=== PATIENT | male | born 1955 | race Caucasian/White ===

== ENCOUNTER 2017-11-22 11:28 | Observation (INO) | payer OTHER ==
[2017-11-22 11:48] VITALS: BMI 26.4
--- NOTE | 2017-11-22 11:58 | PDOC ---
Attending Attestation - Resident Resident Name: Isaac Dumont - HPI HPI: 11/22/17 13:28 Pt presents to the ED complaining of dull, substernal, pressure like chest pain that started at 4 am and was relieved by asprin in [place]'s office. Also complains of lightheadness but denies shortness of breath. Pain was non radiating and was severe. Denies prior history of similar pain. - Physicial Exam PE: 11/22/17 13:32 agree with resident exam. Patient is alert and is in no acute distress. Lungs are clear. Heart has regular rate and rhythm with no murmurs. - Medical Decision Making 11/22/17 13:32 Pt presents to the ED complaining of chest pain. EKG shows no acute changes. Patient's symptoms are concerning for ACS. Will check cardiac enzymes and serial EKG, admit to medicine for r/o ACS.
[2017-11-22 12:34] LABS: BASO % 0.6 % (0-2.0); EOS % 1.1 % (0-4.5); HEMATOCRIT 45.7 % (35.4-49); HEMOGLOBIN 16.1 GM/dL (11.7-16.9); LYMPH % 29.4 % (8-40); MCH 33.4 pg (25.7-33.7); MCHC 35.1 g/dl (32.0-35.9); MEAN CELL VOLUME 95.3 fl (80-96); MEAN PLT VOLUME 7.4 fl (7.5-11.1); MONO % 13.8 % (3.8-10.2); NEUT % 55.1 % (42.8-82.8); PLATELET COUNT 183 K/MM3 (134-434); RDW 12.9 % (11.9-15.9); WHITE BLOOD COUNT 6.5 K/mm3 (4.0-10.0)
[2017-11-22 12:42] LABS: INR 0.92 (0.82-1.09); PROTHROMBIN TIME (PATIENT) 10.4 SEC (9.7-13.0)
--- NOTE | 2017-11-22 12:52 | EKG ---
Test Reason : Blood Pressure : / mmHG Vent. Rate : 061 BPM Atrial Rate : 061 BPM P-R Int : 150 ms QRS Dur : 078 ms QT Int : 420 ms P-R-T Axes : 011 -17 -17 degrees QTc Int : 422 ms POOR DATA QUALITY, INTERPRETATION MAY BE ADVERSELY AFFECTED NORMAL SINUS RHYTHM WITH SINUS ARRHYTHMIA ABNORMAL ECG NO PREVIOUS ECGS AVAILABLE Confirmed by Eber German ([id number]) on 11/22/2017 12:51:58 PM Referred By: Confirmed By:Eber German
--- NOTE | 2017-11-22 13:00 | PDOC ---
History of Present Illness - General Chief Complaint: Chest Pain Stated Complaint: CHEST PAIN Time Seen by Provider: 11/22/17 11:50 - History of Present Illness Initial Comments: 62 year old male without any medical history presenting with palpitations and chest pain over the past day. He had sudden onset palpitations yesterday afternoon that made him sweat and feel nauseous. the palpitations improved but he had a lingering chest discomfort that he saw Dr. Poe for after he measured his pressure at his workplace to 170[address] systolic[address] Dr. Poe set him up for a cardiology appointment with Dean the next day. He had onset of diarrhea yesterday evening and noticed a chest pressure again with nausea, vomiting, and lightheadedness at around 2 Am this morning that has been consistent since. He saw Mauricio this morning and he gave him two aspirin and sent him to the ED. Patient currently complaining of slight chest discomfort that has not remitted. 11/22/17 12:55 Past History - Past Medical History Allergies/Adverse Reactions: Allergies Allergy/AdvReac Type Severity Reaction Status Date / Time No Known Allergies Allergy Verified 11/22/17 11:44 COPD: No Other medical history: DENIES. - Suicide/Smoking/Psychosocial Hx Smoking History: Former smoker Have you smoked in the past 12 months: No Information on smoking cessation initiated: No Review of Systems - Review of Systems Constitutional: No: Chills, Diaphoresis, Fever, Weakness HEENTM: No: Blurred Vision, Double Vision Respiratory: No: Cough, Orthopnea, Shortness of Breath, Wheezing Cardiac (ROS): Yes: Chest Pain, Palpitations. No: Syncope ABD/GI: Yes: Diarrhea. No: Constipated, Nausea, Vomiting : No: Burning, Dysuria, Discharge Musculoskeletal: No: Back Pain, Joint Pain Integumentary: No: Bruising, Erythema, Flushing, Lesions Neurological: No: Headache, Numbness, Paresthesia, Tremors Psychiatric: No: Anxiety, Depression Hematologic/Lymphatic: No: Anemia, Blood Clots, Easy Bleeding *Physical Exam - Vital Signs Last Vital Signs Temp Pulse Resp BP Pulse Ox 98.6 F 58 L 22 157/95 100 11/22/17 11:45 11/22/17 11:45 11/22/17 11:45 11/22/17 11:45 11/22/17 11:45 - Physical Exam General Appearance: Yes: Nourished, Appropriately Dressed. No: Apparent Distress HEENT: positive: EOMI, LUIS F, Normal ENT Inspection, Normal Voice Neck: positive: Trachea midline, Normal Thyroid, Supple. negative: Tender, Rigid Respiratory/Chest: positive: Lungs Clear, Normal Breath Sounds. negative: Chest Tender, Respiratory Distress, Accessory Muscle Use Cardiovascular: positive: Regular Rhythm, Regular Rate Gastrointestinal/Abdominal: positive: Normal Bowel Sounds, Flat, Soft. negative : Tender Musculoskeletal: positive: Normal Inspection. negative: CVA Tenderness Extremity: positive: Normal Capillary Refill, Normal Inspection, Normal Range of Motion. negative: Tender Integumentary: positive: Normal Color, Dry, Warm Neurologic: positive: Fully Oriented, Alert, Normal Mood/Affect, Normal Response , Motor Strength 11/26 ED Treatment Course - LABORATORY CBC & Chemistry Diagram: 11/22/17 12:15 11/22/17 14:08 - ADDITIONAL ORDERS Additional order review: 11/22/17 12:15 RBC 4.80 MCV 95.3 MCHC 35.1 RDW 12.9 MPV 7.4 L Neutrophils % 55.1 Lymphocytes % 29.4 Monocytes % 13.8 H Eosinophils % 1.1 Basophils % 0.6 - RADIOLOGY Radiology Studies Ordered: Category Date Time Status CHEST PA & LAT [RAD] Stat Radiology 11/22/17 11:51 Ordered Medical Decision Making - Medical Decision Making 62 year old male with low cardiac risk factors but highly suspicious story for chest pain. Labs, CXR, and troponins negative/ WNL with exception of elevated T- bili (d-bili pending). Given the suspicion of the story, will admit for tele obs under Dr. [place]. 11/22/17 16:29 *DC/Admit/Observation/Transfer Diagnosis at time of Disposition: Chest pain Qualifiers: Chest pain type: unspecified Qualified Code(s): R07.9 - Chest pain, unspecified - Discharge Dispostion Condition at time of disposition: Stable Admit: Yes - Referrals Referrals: Christopher Poe MD [Primary Care Provider] - - Patient Instructions - Post Discharge Activity
[2017-11-22 13:55] LABS: URINE APPEARANCE CLEAR; URINE BILIRUBIN NEGATIVE (<2.0 mg/dL); URINE BLOOD NEGATIVE (NEGATIVE); URINE COLOR LTYELLOW; URINE GLUCOSE (UA) NEGATIVE (NEGATIVE); URINE KETONE TRACE (NEGATIVE); URINE LEUK ESTERASE NEGATIVE (NEGATIVE); URINE NITRITE NEGATIVE (NEGATIVE); URINE PROTEIN NEGATIVE (NEGATIVE); URINE UROBILINOGEN NEGATIVE mg/dL (0.2-1.0)
[2017-11-22 14:43] LABS: ALBUMIN 3.2 g/dl (3.4-5.0); ANION GAP 9 (8-16); BILIRUBIN,TOTAL 1.7 mg/dL (0.2-1.0); BLOOD UREA NITROGEN 10 mg/dL (7-18); CHLORIDE 105 mmol/L (98-107); CO2 23 mmol/L (21-32); CREATININE 0.8 mg/dL (0.7-1.3); GLUCOSE,RANDOM 96 mg/dL (74-106); POTASSIUM 3.4 mmol/L (3.5-5.1); SGOT/AST 95 U/L (15-37); SGPT/ALT 68 U/L (12-78); SODIUM 137 mmol/L (136-145); TOT PROT 7.3 g/dl (6.4-8.2)
[2017-11-22 14:45] LABS: ALK PHOS 56 U/L (45-117)
--- NOTE | 2017-11-22 20:11 | CON.CARD ---
Cardiology Consult (text) - Consultation Consultation Note: Briefly, 62M sent to ER from my office for 1 day of palpitations, exertional dizziness and chest pain/tightness at rest. Cardiac enzymes and serial ECGs are negative/unchanged. Risk factors include HTN, newly diagnosed, and patient reported history of hyperlipidemia. Physical exam was normal except for mild HTN. CXR is normal. Remainder of admission labs are unremarkable. IMP: Multiple cardiac symptoms: palpitations, exertional dizziness and chest pain syndrome: broad differential including arrhythmia, ischemia, pericardial disease , PHTN and valvular disease. Required urgent inpatient evaluation. [place] has been excluded. REC: 1. Telemetry 2. Echo for EF assessment, r/o pericardial dz and evaluate for PHTN 3. As ECG is stable and serial enzymes negative, will plan for stress MIBI in AM for initial non-invasive risk stratification with further reccs to follow. 4. ASA, beta rosa. 5. AM fasting lipids. Patient was seen in full office consultation today and referred to ER for urgent cardiac labs and diagnostic testing.
[2017-11-22] MEDS: METOPROLOL TARTRATE 25 MG TABLET (FP) PO SCH (22:02)
--- NOTE | 2017-11-22 23:25 | HP ---
Admitting History and Physical - Admission History of Present Illness: 62 y/o m w/ h/o newly diagnosed HTN and HLD was sent to ER (from cardiology outpt office) due to exertional dizziness and chest pain/tightness at rest. Associated with diarrhea/nausea the previous day (before onset of symptoms) Cardiac enzymes and serial ECGs are negative. Pt denies fever, chills. No recent travel or sick contacts. - Smoking History Smoking history: Former smoker Have you smoked in the past 12 months: No - Alcohol/Substance Use Hx Alcohol Use: No Home Medications - Allergies Allergies/Adverse Reactions: Allergies Allergy/AdvReac Type Severity Reaction Status Date / Time No Known Allergies Allergy Verified 11/22/17 11:44 - Home Medications Home Medications: Ambulatory Orders Aspirin 81 mg PO DAILY 11/22/17 Physical Examination Vital Signs: Vital Signs Temperature 99.6 F 11/22/17 18:45 Pulse Rate 73 11/22/17 18:45 Respiratory Rate 15 11/22/17 19:00 Blood Pressure 156/96 11/22/17 18:45 O2 Sat by Pulse Oximetry (%) 100 11/22/17 19:00 Cardiovascular: Yes: Regular Rate and Rhythm Respiratory: Yes: Regular, CTA Bilaterally Gastrointestinal: Yes: Normal Bowel Sounds Labs: CBC, BMP 11/22/17 12:15 11/22/17 14:08 Problem List - Problems (1) Chest pain Code(s): R07.9 - CHEST PAIN, UNSPECIFIED Qualifiers: Chest pain type: unspecified Qualified Code(s): R07.9 - Chest pain, unspecified Assessment/Plan Chest Pain [place] has been excluded. -Given broad symptoms--monitor changes -further inpt evaluation s per cardiology. -pain control
[2017-11-22] MEDS: ALPRAZolam 0.25 MG TABLET PO PRN (23:45)
[2017-11-23 06:00] LABS: BASO % 0.3 % (0-2.0); HEMATOCRIT 40.9 % (35.4-49); HEMOGLOBIN 14.3 GM/dL (11.7-16.9); MCH 33.8 pg (25.7-33.7); MEAN CELL VOLUME 96.7 fl (80-96); MEAN PLT VOLUME 7.6 fl (7.5-11.1); MONO % 16.6 % (3.8-10.2); NEUT % 43.1 % (42.8-82.8); PLATELET COUNT 161 K/MM3 (134-434); RBC 4.23 M/mm3 (4.00-5.60); WHITE BLOOD COUNT 5.4 K/mm3 (4.0-10.0)
[2017-11-23 07:37] LABS: ALBUMIN 3.1 g/dl (3.4-5.0); ANION GAP 7 (8-16); BLOOD UREA NITROGEN 9 mg/dL (7-18); CALCIUM 8.2 mg/dL (8.5-10.1); CHLORIDE 106 mmol/L (98-107); CHOLESTEROL 170 mg/dL (50-200); CO2 27 mmol/L (21-32); CREATININE 0.9 mg/dL (0.7-1.3); GLUCOSE,RANDOM 101 mg/dL (74-106); POTASSIUM 3.8 mmol/L (3.5-5.1); SGOT/AST 88 U/L (15-37); SGPT/ALT 65 U/L (12-78); SODIUM 140 mmol/L (136-145); TRIGLYCERIDES 417 mg/dL (35-160)
[2017-11-23 07:46] LABS: ALK PHOS 55 U/L (45-117); BILIRUBIN,TOTAL 1.6 mg/dL (0.2-1.0); HDL CHOLESTEROL 33 mg/dL (40-60); TOT PROT 7.3 g/dl (6.4-8.2)
--- NOTE | 2017-11-23 08:02 | PN ---
Progress Note, Physician Chief Complaint: comfortable No chest pain History of Present Illness: TELE: NSR - Current Medication List Current Medications: Active Medications Alprazolam (Xanax -) 0.25 mg PO BID PRN PRN Reason: ANXIETY Last Admin: 11/22/17 23:45 Dose: 0.25 mg Aspirin (Asa -) 162 mg PO DAILY [facility] Metoprolol Tartrate (Lopressor -) 25 mg PO BID [facility] Last Admin: 11/22/17 22:02 Dose: 25 mg - Objective Vital Signs: Vital Signs Temperature 98.4 F 11/23/17 06:00 Pulse Rate 58 L 11/23/17 06:00 Respiratory Rate 15 11/23/17 06:48 Blood Pressure 140/83 11/23/17 06:00 O2 Sat by Pulse Oximetry (%) 100 11/23/17 06:48 Constitutional: Yes: Calm Cardiovascular: Yes: Regular Rate and Rhythm Respiratory: Yes: CTA Bilaterally Gastrointestinal: Yes: Soft Edema: No Neurological: Yes: Alert, Oriented ...Motor Strength: WNL Labs: CBC, BMP 11/23/17 05:40 INR, PTT INR 0.92 (0.82-1.09) 11/22/17 12:15 Laboratory Tests 11/22/17 11/22/17 11/22/17 13:51 14:08 17:52 WBC Hgb Plt Count Troponin I < 0.02 < 0.02 < 0.02 11/23/17 05:40 WBC 5.4 Hgb 14.3 D Plt Count 161 Troponin I - ....Imaging Chest X-ray: Report Reviewed, Image Reviewed EKG: Image Reviewed Assessment/Plan IMP: Multiple cardiac symptoms: palpitations, exertional dizziness and chest pain syndrome: broad differential including arrhythmia, ischemia, pericardial disease , PHTN and valvular disease. Required urgent inpatient evaluation. [place] has been excluded. REC: 1. Telemetry 2. Echo for EF assessment, r/o pericardial dz and evaluate for PHTN 3. As ECG is stable and serial enzymes negative, will plan for stress MIBI today for initial non-invasive risk stratification with further reccs to follow. 4. ASA, beta rosa to be held this AM for stress test 5. AM fasting lipids pending
[2017-11-23] MEDS ORDERED: ASPIRIN 81 MG CHEWABLE TABLETS ONE (08:45)
[2017-11-23] MEDS ORDERED: ASPIRIN 81 MG CHEWABLE TABLETS PO SCH (10:00)
[2017-11-23] MEDS: ASPIRIN 81 MG CHEWABLE TABLETS PO SCH (10:00)
[2017-11-23] MEDS: METOPROLOL TARTRATE 25 MG TABLET (FP) PO SCH ×2 (10:00→21:52)
--- NOTE | 2017-11-23 10:31 | EKG ---
Test Reason : Blood Pressure : / mmHG Vent. Rate : 063 BPM Atrial Rate : 063 BPM P-R Int : 148 ms QRS Dur : 084 ms QT Int : 416 ms P-R-T Axes : 009 -18 -01 degrees QTc Int : 425 ms POOR DATA QUALITY, INTERPRETATION MAY BE ADVERSELY AFFECTED NORMAL SINUS RHYTHM INFERIOR INFARCT (CITED ON OR BEFORE 22-NOV-2017) ABNORMAL ECG WHEN COMPARED WITH ECG OF 22-NOV-2017 11:33, NO SIGNIFICANT CHANGE WAS FOUND Confirmed by NIKOLE LANDEROS, JOE ([id number]) on 11/23/2017 10:30:54 AM Referred By: Confirmed By:JOE AGUSTIN MD
--- NOTE | 2017-11-23 21:13 | PN ---
Progress Note, Physician History of Present Illness: no new complaints - Current Medication List Current Medications: Active Medications Alprazolam (Xanax -) 0.25 mg PO BID PRN PRN Reason: ANXIETY Last Admin: 11/22/17 23:45 Dose: 0.25 mg Aspirin (Asa -) 162 mg PO DAILY [facility] Last Admin: 11/23/17 10:00 Dose: 162 mg Metoprolol Tartrate (Lopressor -) 25 mg PO BID [facility] Last Admin: 11/23/17 10:00 Dose: Not Given - Objective Vital Signs: Vital Signs Temperature 98.8 F 11/23/17 18:56 Pulse Rate 64 11/23/17 17:00 Respiratory Rate 24 11/23/17 20:00 Blood Pressure 126/79 11/23/17 17:00 O2 Sat by Pulse Oximetry (%) 100 11/23/17 20:00 Constitutional: Yes: No Distress Cardiovascular: Yes: Regular Rate and Rhythm Respiratory: Yes: Regular, CTA Bilaterally Gastrointestinal: Yes: Normal Bowel Sounds Labs: CBC, BMP 11/23/17 05:40 11/23/17 05:40 INR, PTT INR 0.92 (0.82-1.09) 11/22/17 12:15 Problem List - Problems (1) Chest pain Code(s): R07.9 - CHEST PAIN, UNSPECIFIED Qualifiers: Chest pain type: unspecified Qualified Code(s): R07.9 - Chest pain, unspecified Assessment/Plan Chest Pain -Given broad symptoms--monitor changes -further inpt evaluation as per cardiology.
[2017-11-23] MEDS: ALPRAZolam 0.25 MG TABLET PO PRN (21:52)
--- NOTE | 2017-11-24 08:20 | PN ---
Progress Note, Physician Chief Complaint: + stress test History of Present Illness: TELE: NSR, sinus tu while asleep - Current Medication List Current Medications: Active Medications Alprazolam (Xanax -) 0.25 mg PO BID PRN PRN Reason: ANXIETY Last Admin: 11/23/17 21:52 Dose: 0.25 mg Aspirin (Asa -) 162 mg PO DAILY [facility] Last Admin: 11/23/17 10:00 Dose: 162 mg Metoprolol Tartrate (Lopressor -) 25 mg PO BID [facility] Last Admin: 11/23/17 21:52 Dose: 25 mg - Objective Vital Signs: Vital Signs Temperature 98.2 F 11/24/17 02:00 Pulse Rate 47 L 11/24/17 05:42 Respiratory Rate 22 11/24/17 05:42 Blood Pressure 124/77 11/24/17 05:42 O2 Sat by Pulse Oximetry (%) 100 11/24/17 02:46 Constitutional: Yes: No Distress, Calm Cardiovascular: Yes: Regular Rate and Rhythm Respiratory: Yes: CTA Bilaterally Gastrointestinal: Yes: Soft Edema: No Neurological: Yes: Alert, Oriented Labs: CBC, BMP 11/23/17 05:40 11/23/17 05:40 INR, PTT INR 0.92 (0.82-1.09) 11/22/17 12:15 - ....Imaging EKG: Image Reviewed (NSR) Assessment/Plan IMP: New onset angina + stress test, moderate ischemia REC: Plan for Tx to [facility] for cath. Several RF, new onset angina, moderate area of ischemia. Risks/benefits reviewed in detail. Patient has agreed to cath
[2017-11-24] MEDS: ASPIRIN 81 MG CHEWABLE TABLETS PO SCH (09:17)
[2017-11-24 11:14] VITALS: BP 137/73; PULSE 63; TEMP 99.1
--- NOTE | 2017-11-24 15:30 | DS ---
Physical Examination Vital Signs: Vital Signs Temperature 99.1 F 11/24/17 10:00 Pulse Rate 63 11/24/17 10:00 Respiratory Rate 22 11/24/17 10:00 Blood Pressure 137/73 11/24/17 10:00 O2 Sat by Pulse Oximetry (%) 100 11/24/17 02:46 Labs: CBC, BMP 11/23/17 05:40 11/23/17 05:40 Discharge Summary Reason For Visit: CHEST PAIN Chest pain Hospital Course: 62 y/o m w/ h/o newly diagnosed HTN and HLD was sent to ER (from cardiology outpt office) due to exertional dizziness and chest pain/tightness at rest. Associated with diarrhea/nausea the previous day (before onset of symptoms) cardiac enzymes and serial ECGs were negative. Pt had (+) stress test (w/ moderate ischemia and was transferred to [facility] facility. Condition: Stable - Instructions Referrals: Christopher Poe MD [Primary Care Provider] - Disposition: TRANSFER ACUTE CARE/OTHER HOSP - Home Medications Comprehensive Discharge Medication List: Ambulatory Orders Aspirin 81 mg PO DAILY 11/22/17
== END 2017-11-24 10:45 | disposition short-term general hospital (02) ==
LOC: JER 11:28 → JERBED 16:34 → J2W 18:43
PROVIDERS: ADMIT Internal Medicine; ATTEND Internal Medicine
DX: R07.9 Chest pain, unspecified (principal); I20.9 Angina pectoris, unspecified
CPT/HCPCS: 36415; 71046-TC-FY; 78452-TC; 80048; 80053; 80061; 81003; 82248; 82550; 83721; 83735; 84443; 84484; 85025; 85610; 93005; 93010; 93017; 93306-TC; 99284-25; A9502; G0378

== ENCOUNTER 2018-09-29 12:18 | Inpatient (IN) | payer OTHER ==
[2018-09-29 12:29] VITALS: BMI 26.4
--- NOTE | 2018-09-29 14:43 | PDOC ---
History of Present Illness - General Chief Complaint: Chest Pain Stated Complaint: SENT FROM [facility] Time Seen by Provider: 09/29/18 14:12 History Source: Patient Exam Limitations: No Limitations - History of Present Illness Initial Comments: 09/29/18 14:37 Patient is a 63M with history of CABG and HLD here today complaining of two days of chest pain described as a discomfort. Patient states that the pain started after a dental implant procedure that lasted over one hour. Denies leg swelling, recent travel. Denies radiation of pain. Endorses feeling weaker than normal the past two days. Denies history of blood clots. Denies fevers, chills, shortness of breath, nausea, vomiting, and cough. Past History - Past Medical History Allergies/Adverse Reactions: Allergies Allergy/AdvReac Type Severity Reaction Status Date / Time No Known Allergies Allergy Verified 09/29/18 12:26 Home Medications: Ambulatory Orders Aspirin 81 mg PO DAILY 11/22/17 Atorvastatin Calcium [Lipitor] 10 mg PO HS 09/29/18 COPD: No - Immunization History Immunization Up to Date: Yes - Suicide/Smoking/Psychosocial Hx Smoking History: Never smoked Have you smoked in the past 12 months: No Hx Alcohol Use: No Drug/Substance Use Hx: No Review of Systems - Review of Systems Able to Perform ROS?: Yes Comments:: 09/29/18 14:43 GENERAL/CONSTITUTIONAL: No fever or chills. No weakness. HEAD, EYES, EARS, NOSE AND THROAT: No change in vision. No sore throat. CARDIOVASCULAR: +chest pain No shortness of breath RESPIRATORY: No cough, wheezing, or hemoptysis. GASTROINTESTINAL: No nausea, vomiting, diarrhea or constipation. GENITOURINARY: No dysuria, frequency, or change in urination. MUSCULOSKELETAL: No joint or muscle swelling or pain. No neck or back pain. SKIN: No rash NEUROLOGIC: No headache, vertigo, loss of consciousness, or change in strength/ sensation. ENDOCRINE: No increased thirst. No abnormal weight change HEMATOLOGIC/LYMPHATIC: No anemia, easy bleeding, or history of blood clots. ALLERGIC/IMMUNOLOGIC: No hives or skin allergy. *Physical Exam - Vital Signs Last Vital Signs Temp Pulse Resp BP Pulse Ox 98.5 F 79 16 143/71 99 09/29/18 12:26 09/29/18 12:26 09/29/18 12:26 09/29/18 12:26 09/29/18 12:26 - Physical Exam Comments: 09/29/18 14:44 GENERAL: Awake, alert, and fully oriented, in no acute distress HEAD: No signs of trauma, normocephalic, atraumatic EYES: PERRLA, EOMI, sclera anicteric, conjunctiva clear ENT: Auricles normal inspection, hearing grossly normal, nares patent, oropharynx clear without exudates. Moist mucosa NECK: Normal ROM, supple, no lymphadenopathy, JVD, or masses LUNGS: No distress, speaks full sentences, clear to auscultation bilaterally HEART: Regular rate and rhythm, normal S1 and S2, no murmurs, rubs or gallops, peripheral pulses normal and equal bilaterally. ABDOMEN: Soft, nontender, normoactive bowel sounds. No guarding, no rebound. No masses EXTREMITIES: Normal inspection, Normal range of motion, no edema. No clubbing or cyanosis. NEUROLOGICAL: Cranial nerves II through XII grossly intact. Normal speech, normal gait, no focal sensorimotor deficits SKIN: Warm, Dry, normal turgor, no rashes or lesions noted. Moderate Sedation - Procedure Monitoring Vital Signs: Procedure Monitoring Vital Signs Temperature 98.5 F 09/29/18 12:26 Pulse Rate 79 09/29/18 12:26 Respiratory Rate 16 09/29/18 12:26 Blood Pressure 143/71 09/29/18 12:26 O2 Sat by Pulse Oximetry (%) 99 09/29/18 12:26 ED Treatment Course - LABORATORY CBC & Chemistry Diagram: 09/29/18 15:00 09/29/18 15:00 - RADIOLOGY Radiology Studies Ordered: Category Date Time Status CHEST PA & LAT [RAD] Stat Radiology 09/29/18 14:23 Ordered Medical Decision Making - Medical Decision Making 09/29/18 14:44 Patient is 63M with history of CABG and HLD here today with chest pain. Vitals normal and stable. DDx includes, but is not limited to: acs, arrhythmia, chf, pneumonia, pe. Low risk for PE, but do want to rule out given recent procedure and association with same procedure. Will d-dimer, typical cardiac labs. EKG shows NSR, no st elevations/depressions. Normal axis. Normal intervals. Q waves in III and aVF. No significant t wave abnormalities. 09/30/18 09:35 D-dimer negative. Trop neg. Labs reassuring. Admitted to tele obs. Delay in note completion caused by [employer] downtime. *DC/Admit/Observation/Transfer Diagnosis at time of Disposition: Chest pain - Discharge Dispostion Condition at time of disposition: Stable Decision to Admit order: Yes - Referrals - Patient Instructions - Post Discharge Activity
[2018-09-29 15:24] LABS: BASO % 0.3 % (0-2.0); EOS % 1.9 % (0-4.5); HEMATOCRIT 44.7 % (35.4-49); HEMOGLOBIN 15.6 GM/dL (11.7-16.9); MCH 33.7 pg (25.7-33.7); MEAN CELL VOLUME 96.4 fl (80-96); MEAN PLT VOLUME 7.7 fl (7.5-11.1); MONO % 12.7 % (3.8-10.2); NEUT % 54.1 % (42.8-82.8); PLATELET COUNT 145 K/MM3 (134-434); RBC 4.63 M/mm3 (4.00-5.60); RDW 13.2 % (11.9-15.9); WHITE BLOOD COUNT 4.1 K/mm3 (4.0-10.0)
[2018-09-29 16:07] LABS: INR 0.95 (0.83-1.09); PROTHROMBIN TIME (PATIENT) 11.2 SEC (9.7-13.0)
[2018-09-29 16:25] LABS: ALBUMIN 3.2 g/dl (3.4-5.0); ALK PHOS 88 U/L (45-117); ANION GAP 10 MMOL/L (8-16); BILIRUBIN,TOTAL 2.2 mg/dL (0.2-1); BLOOD UREA NITROGEN 9 mg/dL (7-18); CHLORIDE 101 mmol/L (98-107); CO2 25 mmol/L (21-32); CREATININE 0.9 mg/dL (0.55-1.3); GLUCOSE,RANDOM 107 mg/dL (74-106); MAGNESIUM 2.1 mg/dL (1.8-2.4); POTASSIUM 4.3 mmol/L (3.5-5.1); SGOT/AST 592 U/L (15-37); SGPT/ALT 357 U/L (13-61); SODIUM 136 mmol/L (136-145); TOT PROT 7.8 g/dl (6.4-8.2)
--- NOTE | 2018-09-29 16:42 | PDOC ---
Attending Attestation - Resident Resident Name: J LuissapnaJuan Ramon - ED Attending Attestation I have performed the following: I have examined & evaluated the patient, The case was reviewed & discussed with the resident, I agree w/resident's findings & plan, Exceptions are as noted - HPI HPI: 09/29/18 16:43 The patient is a 63 year old male with a significant past medical history of CABG, and hyperlipidemia who presents to the emergency department with chest pain for 3 days. The patient reports that he has been more tired than usual. He reports that he had dental implants put into his upper jaw 2 days ago which took about 4 hours. The patient denies any shortness of breath, headache, dizziness, numbness, weakness or tingling sensations. He denies any fever, chills, nausea, vomiting, or diarrhea. The patient denies any other complaints. - Physicial Exam PE: 09/29/18 16:47 GENERAL: Awake, alert, and fully oriented, in no acute distress. HEAD: No signs of trauma EYES: PERRLA, EOMI, sclera anicteric, conjunctiva clear ENT: Auricles normal inspection, hearing grossly normal, nares patent, oropharynx clear without exudates. Moist mucosa NECK: Nontender, no stepoffs, Normal ROM, supple, no lymphadenopathy, JVD, or masses LUNGS: Breath sounds equal, clear to auscultation bilaterally. No wheezes, and no crackles HEART: Regular rate and rhythm, normal S1 and S2, no murmurs, rubs or gallops ABDOMEN: Soft, nontender, normoactive bowel sounds. No guarding, no rebound. No masses EXTREMITIES: Normal range of motion, no edema. No clubbing or cyanosis. No cords, erythema, or tenderness NEUROLOGICAL: Cranial nerves II through XII intact. 5/5 strength and sensation in all extremities, Normal speech, normal gait, normal cerebellar function SKIN: Warm, Dry, normal turgor, no rashes or lesions noted. - Medical Decision Making 09/29/18 16:47 63 M with chest pain. Will r/o ACS with EKG and serial trops. Pt with no s/s DVT but given recent immobilization for dental procedure, will obtain ddimer. - Labs, trop, Ddimer - CXR
--- NOTE | 2018-09-30 08:18 | CON.CARD ---
Consult Consult Specialty:: Cardiology for dr. Reilly - History of Present Illness Chief Complaint: cp History of Present Illness: Patient is a 63M with history of CAD and HLD here today complaining of two days of chest pain described as a discomfort. Patient states that the pain started after a dental implant procedure that lasted over one hour. Denies leg swelling , recent travel. Denies radiation of pain. Endorses feeling weaker than normal the past two days. Denies history of blood clots. Denies fevers, chills, shortness of breath, nausea, vomiting, and cough. - History Source History Provided By: Patient, Medical Record - Past Medical History Cardio/Vascular: Yes: CAD, Hyperlipdemia - Past Surgical History Past Surgical History: Yes: CABG - Alcohol/Substance Use Hx Alcohol Use: No - Smoking History Smoking history: Never smoked Have you smoked in the past 12 months: No Home Medications - Allergies Allergies/Adverse Reactions: Allergies Allergy/AdvReac Type Severity Reaction Status Date / Time No Known Allergies Allergy Verified 09/29/18 12:26 - Home Medications Home Medications: Ambulatory Orders Aspirin 81 mg PO DAILY 11/22/17 Atorvastatin Calcium [Lipitor] 10 mg PO HS 09/29/18 Review of Systems - Review of Systems Constitutional: reports: No Symptoms Eyes: reports: No Symptoms HENT: reports: No Symptoms Neck: reports: No Symptoms Cardiovascular: reports: Chest Pain Respiratory: reports: No Symptoms Gastrointestinal: reports: No Symptoms Genitourinary: reports: No Symptoms Breasts: reports: No Symptoms Reported Musculoskeletal: reports: No Symptoms Integumentary: reports: No Symptoms Neurological: reports: No Symptoms Endocrine: reports: No Symptoms Hematology/Lymphatic: reports: No Symptoms Psychiatric: reports: No Symptoms Vital Signs: Vital Signs Temperature 98.5 F 09/29/18 12:26 Pulse Rate 79 09/29/18 12:26 Respiratory Rate 16 09/29/18 12:26 Blood Pressure 143/71 09/29/18 12:26 O2 Sat by Pulse Oximetry (%) 99 09/29/18 12:26 Constitutional: Yes: Well Nourished, No Distress, Calm Eyes: Yes: WNL, Conjunctiva Clear, EOM Intact HENT: Yes: WNL, Atraumatic, Normocephalic Neck: Yes: WNL, Supple, Trachea Midline Respiratory: Yes: WNL, Regular, CTA Bilaterally Gastrointestinal: Yes: WNL, Normal Bowel Sounds Renal/: Yes: WNL Cardiovascular: Yes: WNL, Regular Rate and Rhythm Musculoskeletal: Yes: WNL Extremities: Yes: WNL Integumentary: Yes: WNL Neurological: Yes: WNL, Alert, Oriented ...Motor Strength: WNL Psychiatric: Yes: WNL, Alert, Oriented - Other Data Labs, Other Data: CBC, BMP 09/29/18 15:00 09/29/18 15:00 INR, PTT INR 0.95 (0.83-1.09) 09/29/18 15:00 Troponin, BNP 09/29/18 15:00 Troponin I < 0.02 Troponin, BNP 09/29/18 15:00 Troponin I < 0.02 Imaging - Results Chest X-ray: Image Reviewed (no i/e) EKG: Image Reviewed (sr old iw mi) Problem List - Problems (1) Chest pain Code(s): R07.9 - CHEST PAIN, UNSPECIFIED Assessment/Plan ashd s/p + MIBI November 2017 transfered for c. cath to [facility] - results not available hlp atypical cp Plan telemetry r/o mi obtaine records from [facility] regarding c. cath cont asa lipitor. Coverage for dr. Reilly
--- NOTE | 2018-09-30 09:52 | EKG ---
Test Reason : Blood Pressure : / mmHG Vent. Rate : 073 BPM Atrial Rate : 073 BPM P-R Int : 146 ms QRS Dur : 080 ms QT Int : 404 ms P-R-T Axes : 017 -25 -10 degrees QTc Int : 445 ms POOR DATA QUALITY, INTERPRETATION MAY BE ADVERSELY AFFECTED NORMAL SINUS RHYTHM INFERIOR INFARCT (CITED ON OR BEFORE 22-NOV-2017) ABNORMAL ECG WHEN COMPARED WITH ECG OF 22-NOV-2017 18:16, NO SIGNIFICANT CHANGE WAS FOUND Confirmed by ANDREINA ORTIZ MD ([id number]) on 09/30/2018 9:52:42 AM Referred By: Confirmed By:ANDREINA ORTIZ MD
[2018-09-30] MEDS ORDERED: ASPIRIN 81 MG CHEWABLE TABLETS ONE (10:25)
[2018-09-30] MEDS ORDERED: HEPARIN NA (PORCINE) 5,000 UNITS/ML 1ML VIAL ONE (10:26)
[2018-09-30] MEDS: ASPIRIN 81 MG CHEWABLE TABLETS PO SCH (10:33)
[2018-09-30] MEDS: HEPARIN NA (PORCINE) 5,000 UNITS/ML 1ML VIAL SQ SCH ×2 (10:33→22:21)
--- NOTE | 2018-09-30 11:46 | HP ---
Admitting History and Physical - Past Medical History Cardiovascular: Yes: CAD, Hyperlipdemia - Past Surgical History Past Surgical History: Yes: CABG - Smoking History Smoking history: Never smoked Have you smoked in the past 12 months: No - Alcohol/Substance Use Hx Alcohol Use: No Home Medications - Allergies Allergies/Adverse Reactions: Allergies Allergy/AdvReac Type Severity Reaction Status Date / Time No Known Allergies Allergy Verified 09/29/18 12:26 - Home Medications Home Medications: Ambulatory Orders Aspirin 81 mg PO DAILY 11/22/17 Atorvastatin Calcium [Lipitor] 10 mg PO HS 09/29/18 Physical Examination Vital Signs: Vital Signs Temperature 98.5 F 09/29/18 12:26 Pulse Rate 79 09/29/18 12:26 Respiratory Rate 16 09/29/18 12:26 Blood Pressure 143/71 09/29/18 12:26 O2 Sat by Pulse Oximetry (%) 99 09/29/18 12:26 Labs: CBC, BMP 09/29/18 15:00 09/29/18 15:00
--- NOTE | 2018-09-30 16:21 | PN ---
Progress Note, Physician History of Present Illness: Patient is a 63M with history of CAD - cardiac catheterization at [facility] with RCA COMBINATION OPERATOR, LAD disease disease requiring 1 vessel DAVIDSON-LAD cardiac bypass along with PCI to D2. and HLD here today complaining of two days of chest pain described as a discomfort. Patient states that the pain started after a dental implant procedure that lasted over one hour. Denies leg swelling, recent travel. Denies radiation of pain. Endorses feeling weaker than normal the past two days. Denies history of blood clots. Denies fevers, chills, shortness of breath, nausea, vomiting, and cough. - Current Medication List Current Medications: Active Medications Aspirin (Asa -) 81 mg PO DAILY [facility] Last Admin: 09/30/18 10:33 Dose: 81 mg Atorvastatin Calcium (Lipitor -) 10 mg PO HS [facility] Heparin Sodium (Porcine) (Heparin -) 5,000 unit SQ BID [facility] Last Admin: 09/30/18 10:33 Dose: Not Given - Objective Vital Signs: Vital Signs Temperature 98.5 F 09/29/18 12:26 Pulse Rate 79 09/29/18 12:26 Respiratory Rate 16 09/29/18 12:26 Blood Pressure 143/71 09/29/18 12:26 O2 Sat by Pulse Oximetry (%) 99 09/29/18 12:26 Eyes: Yes: WNL, Conjunctiva Clear, EOM Intact HENT: Yes: WNL, Atraumatic, Normocephalic Neck: Yes: WNL, Supple, Trachea Midline Cardiovascular: Yes: WNL, Regular Rate and Rhythm Respiratory: Yes: WNL, Regular, CTA Bilaterally Gastrointestinal: Yes: WNL, Normal Bowel Sounds Genitourinary: Yes: WNL Musculoskeletal: Yes: WNL Extremities: Yes: WNL Edema: No Integumentary: Yes: WNL Neurological: Yes: WNL, Alert, Oriented ...Motor Strength: WNL Psychiatric: Yes: WNL Labs: CBC, BMP 09/29/18 15:00 09/29/18 15:00 INR, PTT INR 0.95 (0.83-1.09) 09/29/18 15:00 Problem List - Problems (1) Chest pain Code(s): R07.9 - CHEST PAIN, UNSPECIFIED Assessment/Plan ashd s/p + MIBI November 2017 transfered for c. cath to [facility] - CAD - cardiac catheterization at 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 GI in origin? Plan; telemetry r/o mi GI eval Coverage for dr. Reilly
[2018-09-30] MEDS ORDERED: METOPROLOL TARTRATE 25 MG TABLET (FP) ONE (20:06)
[2018-09-30] MEDS: metoPROLOL SUCCINATE 25 MG TAB.SR.24H (FP) PO SCH (20:10)
[2018-09-30] MEDS: ATORVASTATIN CA 10 MG TABLET (FP) PO SCH (22:21)
[2018-10-01 07:15] LABS: ALBUMIN 2.8 g/dl (3.4-5.0); ALK PHOS 61 U/L (45-117); ANION GAP 7 MMOL/L (8-16); BILIRUBIN,TOTAL 1.2 mg/dL (0.2-1); BLOOD UREA NITROGEN 10 mg/dL (7-18); CALCIUM 8.4 mg/dL (8.5-10.1); CHLORIDE 106 mmol/L (98-107); CO2 27 mmol/L (21-32); CREATININE 0.8 mg/dL (0.55-1.3); GLUCOSE,RANDOM 96 mg/dL (74-106); POTASSIUM 3.5 mmol/L (3.5-5.1); SGOT/AST 135 U/L (15-37); SGPT/ALT 155 U/L (13-61); SODIUM 140 mmol/L (136-145); TOT PROT 6.6 g/dl (6.4-8.2)
[2018-10-01 07:22] LABS: BASO % 0.1 % (0-2.0); HEMATOCRIT 39.4 % (35.4-49); HEMOGLOBIN 13.8 GM/dL (11.7-16.9); LYMPH % 35.6 % (8-40); MCH 34.5 pg (25.7-33.7); MEAN CELL VOLUME 98.7 fl (80-96); MEAN PLT VOLUME 8.4 fl (7.5-11.1); NEUT % 47.3 % (42.8-82.8); PLATELET COUNT 108 K/MM3 (134-434); RBC 3.99 M/mm3 (4.00-5.60); RDW 13.1 % (11.9-15.9); WHITE BLOOD COUNT 5.1 K/mm3 (4.0-10.0)
[2018-10-01] MEDS: metoPROLOL SUCCINATE 25 MG TAB.SR.24H (FP) PO SCH (10:20)
[2018-10-01] MEDS: ASPIRIN 81 MG CHEWABLE TABLETS PO SCH (10:20)
[2018-10-01] MEDS: HEPARIN NA (PORCINE) 5,000 UNITS/ML 1ML VIAL SQ SCH ×2 (10:20→21:32)
[2018-10-01 10:22] LABS: CHOLESTEROL 151 mg/dL (50-200); HDL CHOLESTEROL 40 mg/dL (40-60); TRIGLYCERIDES 248 mg/dL (0-150)
--- NOTE | 2018-10-01 12:24 | CON.GI ---
Consult Consult Specialty:: GI Referred by:: Dr Ledezma Reason for Consultation:: elevated LFTs - History of Present Illness Chief Complaint: Admitted for cardiac reasons, found to have aminotransferases in the 300-500 range, bili 2.2, normal alk phos History of Present Illness: Pt had dental procedure lasting one hour, saw his PMD who obtained EKG and sent him to ER. Found to have very elevated liver chemistries, improved today: CBC,CMP WBC 5.1 K/mm3 (4.0-10.0) 10/01/18 05:30 RBC 3.99 M/mm3 (4.00-5.60) L 10/01/18 05:30 Hgb 13.8 GM/dL (11.7-16.9) 10/01/18 05:30 Hct 39.4 % (35.4-49) 10/01/18 05:30 MCV 98.7 fl (80-96) H 10/01/18 05:30 MCH 34.5 pg (25.7-33.7) H 10/01/18 05:30 MCHC 35.0 g/dl (32.0-35.9) 10/01/18 05:30 RDW 13.1 % (11.9-15.9) 10/01/18 05:30 Plt Count 108 K/MM3 (134-434) L D 10/01/18 05:30 MPV 8.4 fl (7.5-11.1) 10/01/18 05:30 Absolute Neuts (auto) 2.4 K/mm3 (1.5-8.0) 10/01/18 05:30 Neutrophils % 47.3 % (42.8-82.8) 10/01/18 05:30 Lymphocytes % 35.6 % (8-40) 10/01/18 05:30 Monocytes % 13.0 % (3.8-10.2) H 10/01/18 05:30 Eosinophils % 4.0 % (0-4.5) D 10/01/18 05:30 Basophils % 0.1 % (0-2.0) 10/01/18 05:30 Nucleated RBC % 0 % (0-0) 10/01/18 05:30 Sodium 140 mmol/L (136-145) 10/01/18 05:30 Potassium 3.5 mmol/L (3.5-5.1) 10/01/18 05:30 Chloride 106 mmol/L (98-107) 10/01/18 05:30 Carbon Dioxide 27 mmol/L (21-32) 10/01/18 05:30 Anion Gap 7 MMOL/L (8-16) L 10/01/18 05:30 BUN 10 mg/dL (7-18) 10/01/18 05:30 Creatinine 0.8 mg/dL (0.55-1.3) 10/01/18 05:30 Creat Clearance w eGFR > 60 (>60) 10/01/18 05:30 Random Glucose 96 mg/dL (74-106) 10/01/18 05:30 Calcium 8.4 mg/dL (8.5-10.1) L 10/01/18 05:30 Magnesium 2.1 mg/dL (1.8-2.4) 09/29/18 15:00 Total Bilirubin 1.2 mg/dL (0.2-1) H 10/01/18 05:30 AST 135 U/L (15-37) H 10/01/18 05:30 ALT 155 U/L (13-61) H 10/01/18 05:30 Alkaline Phosphatase 61 U/L (45-117) 10/01/18 05:30 Creatine Kinase 57 U/L (26-308) 10/01/18 05:30 Creatine Kinase Index 0.6 % (0.0-5.0) 09/29/18 15:00 CK-MB (CK-2) < 1.0 ng/mL (0.5-3.6) 09/29/18 15:00 Troponin I < 0.02 ng/ml (0.00-0.05) 10/01/18 05:30 Total Protein 6.6 g/dl (6.4-8.2) 10/01/18 05:30 Albumin 2.8 g/dl (3.4-5.0) L 10/01/18 05:30 Triglycerides 248 mg/dL (0-150) H 10/01/18 05:30 Cholesterol 151 mg/dL (50-200) 10/01/18 05:30 Total LDL Cholesterol 79 mg/dL (5-100) 10/01/18 05:30 HDL Cholesterol 40 mg/dL (40-60) 10/01/18 05:30 Pt says he was told of elevated liver chemistries 10 years ago when he had kidney stones, and more recently at [facility] where he had cardiology procedures. He denies any history of alcohol abuse or viral hepatitis. - Past Medical History Cardio/Vascular: Yes: CAD, Hyperlipdemia - Past Surgical History Past Surgical History: Yes: CABG - Alcohol/Substance Use Hx Alcohol Use: Yes (DENIES) - Smoking History Smoking history: Never smoked Have you smoked in the past 12 months: No Home Medications - Allergies Allergies/Adverse Reactions: Allergies Allergy/AdvReac Type Severity Reaction Status Date / Time No Known Allergies Allergy Verified 09/29/18 12:26 - Home Medications Home Medications: Ambulatory Orders Aspirin 81 mg PO DAILY 11/22/17 Atorvastatin Calcium [Lipitor] 10 mg PO HS 09/29/18 Physical Exam-GI Vital Signs: Vital Signs Temperature 97.8 F 10/01/18 10:00 Pulse Rate 66 10/01/18 10:00 Respiratory Rate 18 10/01/18 10:00 Blood Pressure 117/76 10/01/18 10:00 O2 Sat by Pulse Oximetry (%) 97 10/01/18 09:00 Labs: CBC, BMP 10/01/18 05:30 10/01/18 05:30 INR, PTT INR 0.95 (0.83-1.09) 09/29/18 15:00 Problem List - Problems (1) Liver function test abnormality Code(s): R94.5 - ABNORMAL RESULTS OF LIVER FUNCTION STUDIES Assessment/Plan Elevated LFTs. By history he has been told of elevated LFTs in the past but presumably not at the level he had on admission. Most likely the marked elevation in lfts on admission had something to do with whatever anesthesia/ antibiotic/other medication he was given for his dental procedure. At this point I would recommend: 1) repeat LFTs in one week. 2) if still elevated he needs workup for chronic liver disease.
--- NOTE | 2018-10-01 19:25 | PN ---
Progress Note, Physician History of Present Illness: STABLE - Current Medication List Current Medications: Active Medications Aspirin (Asa -) 81 mg PO DAILY [facility] Last Admin: 10/01/18 10:20 Dose: 81 mg Atorvastatin Calcium (Lipitor -) 10 mg PO HS [facility] Last Admin: 09/30/18 22:21 Dose: 10 mg Heparin Sodium (Porcine) (Heparin -) 5,000 unit SQ BID [facility] Last Admin: 10/01/18 10:20 Dose: 5,000 unit Metoprolol Succinate (Toprol Xl -) 25 mg PO DAILY [facility] Last Admin: 10/01/18 10:20 Dose: 25 mg - Objective Vital Signs: Vital Signs Temperature 98.9 F 10/01/18 17:51 Pulse Rate 71 10/01/18 17:51 Respiratory Rate 18 10/01/18 17:51 Blood Pressure 104/71 10/01/18 17:51 O2 Sat by Pulse Oximetry (%) 97 10/01/18 09:00 Constitutional: Yes: No Distress HENT: Yes: Atraumatic Neck: Yes: Supple Cardiovascular: Yes: Regular Rate and Rhythm Respiratory: Yes: CTA Bilaterally Gastrointestinal: Yes: Normal Bowel Sounds Extremities: Yes: Other (R wrist iv site warm and swollen, red) Edema: No Peripheral Pulses WNL: Yes Neurological: Yes: Alert, Oriented Labs: CBC, BMP 10/01/18 05:30 10/01/18 05:30 INR, PTT INR 0.95 (0.83-1.09) 09/29/18 15:00 Problem List - Problems (1) Chest pain Assessment/Plan: fu troponin tele monitoring cardio note reviewed Code(s): R07.9 - CHEST PAIN, UNSPECIFIED (2) Liver function test abnormality Assessment/Plan: follow up labs...levels r down today gi note reviewed Code(s): R94.5 - ABNORMAL RESULTS OF LIVER FUNCTION STUDIES Assessment/Plan po abx for R wrist as iv site is red warm and swollen COVERING FOR DR SNEED TODAY
[2018-10-01] MEDS: ATORVASTATIN CA 10 MG TABLET (FP) PO SCH (21:32)
[2018-10-02] MEDS: CEPHALEXIN MONOHYDRATE 500 MG CAPSULE (UD) PO SCH ×4 (00:15→17:43)
--- NOTE | 2018-10-02 08:43 | PN ---
Progress Note, Physician Chief Complaint: seen and examined on tele No further CP LFTS improved. History of Present Illness: TELE: NSR - Current Medication List Current Medications: Active Medications Aspirin (Asa -) 81 mg PO DAILY [facility] Last Admin: 10/01/18 10:20 Dose: 81 mg Atorvastatin Calcium (Lipitor -) 10 mg PO HS [facility] Last Admin: 10/01/18 21:32 Dose: 10 mg Cephalexin HCl (Keflex -) 500 mg PO Q6HPO [facility] Last Admin: 10/02/18 07:05 Dose: 500 mg Heparin Sodium (Porcine) (Heparin -) 5,000 unit SQ BID [facility] Last Admin: 10/01/18 21:32 Dose: 5,000 unit Metoprolol Succinate (Toprol Xl -) 25 mg PO DAILY [facility] Last Admin: 10/01/18 10:20 Dose: 25 mg - Objective Vital Signs: Vital Signs Temperature 97.9 F 10/02/18 05:00 Pulse Rate 60 10/02/18 05:00 Respiratory Rate 18 10/02/18 05:00 Blood Pressure 112/71 10/02/18 05:00 O2 Sat by Pulse Oximetry (%) 99 10/01/18 20:27 Constitutional: Yes: No Distress, Calm Cardiovascular: Yes: Regular Rate and Rhythm Respiratory: Yes: CTA Bilaterally Gastrointestinal: Yes: Soft (NT) Edema: No Neurological: Yes: Alert, Oriented ...Motor Strength: WNL Labs: CBC, BMP 10/01/18 05:30 10/01/18 05:30 INR, PTT INR 0.95 (0.83-1.09) 09/29/18 15:00 Laboratory Tests 09/29/18 10/01/18 10/01/18 15:00 05:30 05:30 WBC 5.1 Hgb 13.8 Plt Count 108 L D Sodium 140 Potassium 3.5 Creatinine 0.8 AST 135 H ALT 155 H Troponin I < 0.02 < 0.02 - ....Imaging EKG: Image Reviewed Assessment/Plan IMP: MIGNON s/p + MIBI November 2017 transfered for c. cath to 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 GI in origin? REC: 1. For stress test today. 2. GI and PMD f/u as outpatient to monitor LFTs and f/u nonspecific Abdominal CT findings
--- NOTE | 2018-10-02 10:41 | EKG ---
Test Reason : Blood Pressure : / mmHG Vent. Rate : 055 BPM Atrial Rate : 055 BPM P-R Int : 160 ms QRS Dur : 086 ms QT Int : 428 ms P-R-T Axes : 011 -23 -14 degrees QTc Int : 409 ms SINUS BRADYCARDIA INFERIOR INFARCT (CITED ON OR BEFORE 22-NOV-2017) ABNORMAL ECG WHEN COMPARED WITH ECG OF 29-SEP-2018 12:24, NO SIGNIFICANT CHANGE WAS FOUND Confirmed by BOBBY LANDEROS, PERCY ([id number]) on 10/02/2018 10:41:15 AM Referred By: Tri TILLMAN Confirmed By:PERCY ROSALES MD
[2018-10-02] MEDS: metoPROLOL SUCCINATE 25 MG TAB.SR.24H (FP) PO SCH (13:04)
[2018-10-02] MEDS: HEPARIN NA (PORCINE) 5,000 UNITS/ML 1ML VIAL SQ SCH (13:04)
[2018-10-02] MEDS: ASPIRIN 81 MG CHEWABLE TABLETS PO SCH (13:04)
[2018-10-02 15:35] VITALS: BP 106/59; PULSE 74; TEMP 98.2
--- NOTE | 2018-10-02 15:44 | ECHO ---
Name: ALYSHA ENRIQUEZ Exam:Adult Echocardiogram Study Date: 10/02/2018 02:40 PM Age: 63 yrs Reason For Study: chest pain Height: 66 in Weight: 164 lb BSA: 1.8 m2 MMode/2D Measurements & Calculations IVSd: 1.2 cm Ao root diam: 3.2 cm LVIDd: 4.8 cm LA dimension: 4.0 cm LVIDs: 3.3 cm ACS: 1.5 cm LVPWd: 0.97 cm IVSs: 1.2 cm LVPWs: 1.1 cm EDV(Teich): 108.4 ml ESV(Teich): 44.4 ml Doppler Measurements & Calculations MV E max rodo: 72.8 cm/sec Ao V2 max: 153.4 cm/sec MV A max rodo: 66.6 cm/sec Ao max P.4 mmHg MV E/A: 1.1 Med Peak E' Rodo: 5.0 cm/sec Med E/e': 14.6 Lat Peak E' Rodo: 7.6 cm/sec Lat E/e': 9.6 Procedure A complete two-dimensional transthoracic echocardiogram was performed (2D, M-mode, Doppler and color flow Doppler). Left Ventricle The left ventricle is normal in size. Left ventricular systolic function is normal. Ejection Fraction = 60- 65%. Grade I diastolic dysfunction, (abnormal relaxation pattern). Ratio E/E'= 15. No regional wall m otion abnormalities noted. Right Ventricle The right ventricle is normal size. The right ventricular systolic function is normal. Atria The left atrial size is normal. Right atrial size is normal. Mitral Valve The mitral valve is normal in structure and function. There is no mitral regurgitation noted. Tricuspid Valve The tricuspid valve is normal in structure and function. No tricuspid regurgitation. Aortic Valve The aortic valve is normal in structure and function. No aortic regurgitation is present. Pulmonic Valve The pulmonic valve is not well visualized. Great Vessels The aortic root is normal size. Pericardium/Pleura There is no pericardial effusion. Interpretation Summary The left ventricle is normal in size. Left ventricular systolic function is normal. No regional wall motion abnormalities noted. Ejection Fraction = 60-65%. Grade I diastolic dysfunction, (abnormal relaxation pattern). Ratio E/E'= 15 The right ventricular systolic function is normal. The left atrial size is normal. Right atrial size is normal. No significant valvular regurgitations are seen There is no pericardial effusion. Previous study is not available for comparison Gera Hills MD 10/02/2018 03:44 PM
--- NOTE | 2018-10-02 17:09 | PN ---
Progress Note, Physician History of Present Illness: GI FOLLOW UP NOTE Patient examined and case discussed with Dr Vu Patient denies abdominal pain, diarrhea, nausea, vomiting. Denies abnormal weight loss or melena. Most recent labs reviewed showing downtrend of LFTs. - Current Medication List Current Medications: Active Medications Aspirin (Asa -) 81 mg PO DAILY [facility] Last Admin: 10/02/18 13:04 Dose: 81 mg Atorvastatin Calcium (Lipitor -) 10 mg PO HS [facility] Last Admin: 10/01/18 21:32 Dose: 10 mg Cephalexin HCl (Keflex -) 500 mg PO Q6HPO [facility] Last Admin: 10/02/18 13:04 Dose: 500 mg Heparin Sodium (Porcine) (Heparin -) 5,000 unit SQ BID [facility] Last Admin: 10/02/18 13:04 Dose: 5,000 unit Metoprolol Succinate (Toprol Xl -) 25 mg PO DAILY [facility] Last Admin: 10/02/18 13:04 Dose: 25 mg - Objective Vital Signs: Vital Signs Temperature 98.2 F 10/02/18 14:00 Pulse Rate 74 10/02/18 14:00 Respiratory Rate 20 10/02/18 14:00 Blood Pressure 106/59 L 10/02/18 14:00 O2 Sat by Pulse Oximetry (%) 99 10/02/18 09:00 Constitutional: Yes: Well Nourished, No Distress, Calm Eyes: Yes: Conjunctiva Clear HENT: Yes: Atraumatic Cardiovascular: Yes: Regular Rate and Rhythm Respiratory: Yes: Regular, CTA Bilaterally Gastrointestinal: Yes: Normal Bowel Sounds, Soft, Other (non tender) Neurological: Yes: Alert, Oriented Psychiatric: Yes: Alert, Oriented Labs: CBC, BMP 10/01/18 05:30 10/01/18 05:30 INR, PTT INR 0.95 (0.83-1.09) 09/29/18 15:00 <Livia Pardo - Last Filed: 10/02/18 17:10> - Current Medication List Current Medications: Active Medications Aspirin (Asa -) 81 mg PO DAILY [facility] Last Admin: 10/02/18 13:04 Dose: 81 mg Atorvastatin Calcium (Lipitor -) 10 mg PO HS [facility] Last Admin: 10/01/18 21:32 Dose: 10 mg Cephalexin HCl (Keflex -) 500 mg PO Q6HPO [facility] Last Admin: 10/02/18 17:43 Dose: 500 mg Heparin Sodium (Porcine) (Heparin -) 5,000 unit SQ BID [facility] Last Admin: 10/02/18 13:04 Dose: 5,000 unit Metoprolol Succinate (Toprol Xl -) 25 mg PO DAILY [facility] Last Admin: 10/02/18 13:04 Dose: 25 mg - Objective Vital Signs: Vital Signs Temperature 98.2 F 10/02/18 14:00 Pulse Rate 74 10/02/18 14:00 Respiratory Rate 20 10/02/18 14:00 Blood Pressure 106/59 L 10/02/18 14:00 O2 Sat by Pulse Oximetry (%) 99 10/02/18 09:00 Labs: CBC, BMP 10/01/18 05:30 10/01/18 05:30 INR, PTT INR 0.95 (0.83-1.09) 09/29/18 15:00 <Tee Vu - Last Filed: 10/02/18 19:28> Problem List - Problems (1) Liver function test abnormality Assessment/Plan: R> daily LFTs and monitor for downtrend >follow up as outpatient for further GI workup Code(s): R94.5 - ABNORMAL RESULTS OF LIVER FUNCTION STUDIES <Livia Pardo - Last Filed: 10/02/18 17:10> - Problems (1) Liver function test abnormality Code(s): R94.5 - ABNORMAL RESULTS OF LIVER FUNCTION STUDIES <Tee Vu - Last Filed: 10/02/18 19:28>
== END 2018-10-02 19:30 | disposition home or self-care (01) | DRG 303 ==
LOC: JER 12:18 → JERBED 17:24 → OBSVTOIN 09-30 03:52 → J4W 09-30 21:24
PROVIDERS: ADMIT Internal Medicine; ATTEND Internal Medicine
DX: I25.10 Atherosclerotic heart disease of native coronary artery without angina pectoris (principal); Z95.1 Presence of aortocoronary bypass graft; E78.5 Hyperlipidemia, unspecified; R74.0 Nonspecific elevation of levels of transaminase and lactic acid dehydrogenase [LDH]; R07.89 Other chest pain; R94.5 Abnormal results of liver function studies
CPT/HCPCS: 36415; 71046-TC-FY; 74177-TC; 76705-TC; 78452-TC; 80053; 80061; 82550; 82553; 83721; 83735; 84484; 85025; 85379; 85610; 93005; 93010; 93017; 93306-TC; 99285-25; A9502; G0378; J1644

== ENCOUNTER 2020-07-04 14:16 | Emergency (ER) | payer OTHER ==
[2020-07-04 14:23] VITALS: BMI 26.1
[2020-07-04 15:55] LABS: ACTIVATED PTT 32.7 SECONDS (25.2-36.5)
[2020-07-04 16:04] LABS: BASO % 0.4 % (0-2.0); EOS % 2.9 % (0-4.5); HEMATOCRIT 41.3 % (35.4-49); HEMOGLOBIN 13.7 GM/dL (11.7-16.9); LYMPH % 31.6 % (8-40); MCH 33.9 pg (25.7-33.7); MCHC 33.2 g/dl (32.0-35.9); MEAN CELL VOLUME 102.2 fl (80-96); MEAN PLT VOLUME 8.5 fl (7.5-11.1); MONO % 13.2 % (3.8-10.2); NEUT % 51.9 % (42.8-82.8); PLATELET COUNT 146 K/MM3 (134-434); POTASSIUM 3.9 mmol/L (3.5-5.1); RBC 4.04 M/mm3 (4.00-5.60); RDW 12.6 % (11.9-15.9); WHITE BLOOD COUNT 6.1 K/mm3 (4.0-10.0)
[2020-07-04 16:06] LABS: ALBUMIN 3.4 g/dl (3.4-5.0); BLOOD UREA NITROGEN 10.2 mg/dL (7-18); CALCIUM 9.2 mg/dL (8.5-10.1)
[2020-07-04 16:09] LABS: CREATININE 0.7 mg/dL (0.55-1.3)
[2020-07-04 16:11] LABS: BILIRUBIN,TOTAL 0.6 mg/dL (0.2-1); TOT PROT 8.1 g/dl (6.4-8.2)
[2020-07-04 17:07] LABS: INR 1.06 (0.83-1.09)
[2020-07-04 18:44] VITALS: BP 116/78; PULSE 78; TEMP 98.2
== END 2020-07-04 18:45 | disposition home or self-care (01) ==
LOC: JER 14:16
DX: K57.92 Diverticulitis of intestine, part unspecified, without perforation or abscess without bleeding (principal); K62.5 Hemorrhage of anus and rectum
CPT/HCPCS: 36415; 71045-TC-FY; 74177-TC; 80053; 82272; 83605; 85025; 85610; 85730; 86850; 86900; 86901; 93005; 93010; 99285-25; Q9967

== ENCOUNTER 2020-10-15 09:42 | Day surgery (SDC) | payer OTHER ==
[2020-10-10 10:53] VITALS: BMI 27.4
[2020-10-15] MEDS ORDERED: PROPOFOL 20 ML ONE (10:09)
[2020-10-15 12:21] VITALS: TEMP 98
[2020-10-15 12:36] VITALS: BP 129/77; PULSE 72
== END 2020-10-15 12:35 | disposition home or self-care (01) ==
LOC: FASU-ENDO 09:42
PROVIDERS: ATTEND Internal Medicine Gastroenterology
PROC: 0DBN8ZX Excision of Sigmoid Colon, Via Natural or Artificial Opening Endoscopic, Diagnostic (ICD-10-PCS; principal; 2020-10-15 11:43)
DX: Z12.11 Encounter for screening for malignant neoplasm of colon (principal); K63.5 Polyp of colon; K57.30 Diverticulosis of large intestine without perforation or abscess without bleeding; K64.1 Second degree hemorrhoids; K64.8 Other hemorrhoids

== ENCOUNTER 2020-11-24 06:01 | Day surgery (SDC) | payer OTHER ==
[2020-11-20 15:43] VITALS: BMI 27.4
[2020-11-24] MEDS ORDERED: EPINEPHrine 1:1,000 1 MG/1 ML - 30ML VIAL (INJECTION) ONE (07:14)
[2020-11-24] MEDS ORDERED: BUPIVACAINE HCL/EPINEPHRINE/PF 30 ML VIAL IJ ONE (07:18)
[2020-11-24] MEDS ORDERED: MIDAZOLAM HCL 2 MG/2 ML SINGLE DOSE VIAL ONE ×2 (07:25→07:27)
[2020-11-24] MEDS ORDERED: ROPIVACAINE HCL 0.5% 30ML VIAL ONE ×2 (07:27)
[2020-11-24] MEDS ORDERED: PROPOFOL 20 ML ONE ×7 (07:48→10:25)
[2020-11-24] MEDS ORDERED: ePHEDrine SULFATE 50 MG/1 ML AMPULE ONE (08:04)
[2020-11-24] MEDS ORDERED: BUPIVACAINE 0.25% /EPI 1:200,000 10 ML VIAL NR ONE ×2 (08:45)
[2020-11-24] MEDS ORDERED: ceFAZolin SODIUM 1 GM VIAL ONE (09:14)
[2020-11-24] MEDS ORDERED: ONDANSETRON 4 MG/2 ML VIAL ONE (09:14)
[2020-11-24] MEDS ORDERED: DEXAMETHASONE SOD PHOSPHATE 4 MG/1 ML VIAL ONE (09:14)
[2020-11-24] MEDS ORDERED: PHENYLEPHRINE HCL 10 MG/1 ML SINGLE DOSE VIAL ONE (09:14)
[2020-11-24] MEDS ORDERED: KETOROLAC TROMETHAMINE 30 MG/1 ML VIAL ONE (10:14)
[2020-11-24] MEDS ORDERED: oxyCODONE HCL 5 MG TABLET PO PRN ×2 (11:38)
[2020-11-24] MEDS ORDERED: ONDANSETRON 4 MG/2 ML VIAL IVPUSH PRN (11:38)
[2020-11-24] MEDS ORDERED: LACTATED RINGERS SOLUTION 1,000 ML IV SCH (11:45)
[2020-11-24 12:16] VITALS: TEMP 97.6
[2020-11-24 13:10] VITALS: BP 112/69; PULSE 59
== END 2020-11-24 13:12 | disposition home or self-care (01) ==
LOC: FASU 06:01
PROVIDERS: ATTEND Orthopaedic Surgery
PROC: 0RBK4ZZ Excision of Left Shoulder Joint, Percutaneous Endoscopic Approach (ICD-10-PCS; principal; 2020-11-24 08:29)
DX: M75.122 Complete rotator cuff tear or rupture of left shoulder, not specified as traumatic (principal); M75.22 Bicipital tendinitis, left shoulder; S43.432A Superior glenoid labrum lesion of left shoulder, initial encounter; S43.102A Unspecified dislocation of left acromioclavicular joint, initial encounter; X58.XXXA Exposure to other specified factors, initial encounter; Y93.9 Activity, unspecified; Y92.9 Unspecified place or not applicable
CPT/HCPCS: 23550; 29822; C1776; 73030-TC-LT-FY; 76000-TC-FY; 88304-TC; 94760

== ENCOUNTER 2021-02-06 18:27 | Inpatient (IN) | payer OTHER ==
[2021-02-06] MEDS ORDERED: levETIRAcetam 500 MG/5 ML INJECTION VIAL IVPB ONE ×2 (20:58→21:01)
[2021-02-06 21:24] LABS: BASO % 0.3 % (0-2.0); EOS % 1.6 % (0-4.5); HEMATOCRIT 39.1 % (35.4-49); HEMOGLOBIN 13.4 GM/dL (11.7-16.9); LYMPH % 26.6 % (8-40); MCHC 34.2 g/dl (32.0-35.9); MEAN CELL VOLUME 93.6 fl (80-96); MEAN PLT VOLUME 6.8 fl (7.5-11.1); MONO % 8.5 % (3.8-10.2); PLATELET COUNT 155 10^3/uL (134-434); RBC 4.18 M/mm3 (4.00-5.60); RDW 14.5 % (11.9-15.9); WHITE BLOOD COUNT 8.6 K/mm3 (4.0-10.0)
[2021-02-06 21:36] LABS: INR 1.03 (0.83-1.09); PROTHROMBIN TIME (PATIENT) 12.7 SEC (9.7-13.0)
[2021-02-06 21:38] LABS: ACTIVATED PTT 28.1 SECONDS (25.2-36.5)
[2021-02-06 21:45] LABS: ALBUMIN 3.6 g/dl (3.4-5.0); BLOOD UREA NITROGEN 8.4 mg/dL (7-18); CALCIUM 8.4 mg/dL (8.5-10.1)
[2021-02-06 21:48] LABS: CREATININE 0.7 mg/dL (0.55-1.3)
[2021-02-06 21:50] LABS: BILIRUBIN,TOTAL 0.5 mg/dL (0.2-1)
[2021-02-06] MEDS: MUPIROCIN 2% TOPICAL OINTMENT FOR DECOLONIZATION NS SCH (22:30)
[2021-02-06] MEDS ORDERED: FOLIC ACID INJECTION - 1 MG, THIAMINE HCL 100 MG, MULTIVIT INJECTION ADULT 10 ML in SOD... IVPB ONE (22:32)
[2021-02-06] MEDS ORDERED: LORazepam 1 MG TABLET PO PRN (22:52)
[2021-02-07] MEDS: levETIRAcetam 500 MG TABLET (FP) PO SCH ×3 (00:55→22:20)
[2021-02-07] MEDS: LORazepam 1 MG TABLET PO SCH ×4 (05:57→17:10)
[2021-02-07 07:05] LABS: HEMATOCRIT 37.1 % (35.4-49); HEMOGLOBIN 12.6 GM/dL (11.7-16.9); MCH 31.7 pg (25.7-33.7); MCHC 33.9 g/dl (32.0-35.9); MEAN CELL VOLUME 93.5 fl (80-96); MEAN PLT VOLUME 7.2 fl (7.5-11.1); PLATELET COUNT 138 10^3/uL (134-434); RBC 3.96 M/mm3 (4.00-5.60); RDW 14.1 % (11.9-15.9); WHITE BLOOD COUNT 9.3 K/mm3 (4.0-10.0)
[2021-02-07 07:13] LABS: CALCIUM 7.9 mg/dL (8.5-10.1)
[2021-02-07 07:14] LABS: ALBUMIN 3.2 g/dl (3.4-5.0); BLOOD UREA NITROGEN 5.1 mg/dL (7-18); MAGNESIUM 1.7 mg/dL (1.8-2.4)
[2021-02-07 07:17] LABS: CREATININE 0.6 mg/dL (0.55-1.3); PHOSPHOROUS 3.2 mg/dL (2.5-4.9)
[2021-02-07 07:18] LABS: BILIRUBIN,TOTAL 0.7 mg/dL (0.2-1)
[2021-02-07 07:19] LABS: TOT PROT 7.4 g/dl (6.4-8.2)
[2021-02-07] MEDS: THIAMINE HCL 100 MG TABLET (FP) PO SCH (10:15)
[2021-02-07] MEDS: FOLIC ACID 1 MG TABLET (FP) PO SCH (10:15)
[2021-02-07] MEDS: PANTOPRAZOLE SODIUM 40 MG VIAL IVPUSH SCH (10:16)
[2021-02-07] MEDS: MUPIROCIN 2% TOPICAL OINTMENT FOR DECOLONIZATION NS SCH ×2 (10:17→22:20)
[2021-02-07] MEDS ORDERED: ACETAMINOPHEN 500 MG TABLET (FP) PO ONE (17:36)
[2021-02-07] MEDS ORDERED: LORazepam 2 MG/ML SDV VIAL IVPUSH ONE (20:31)
[2021-02-07] MEDS: CHLORHEXIDINE GLUCONATE 4% CLEANSER FOR DECOLONIZATION TP SCH (22:20)
[2021-02-08] MEDS: LORazepam 1 MG TABLET PO SCH ×4 (00:21→16:30)
[2021-02-08] MEDS ORDERED: LORazepam 1 MG TABLET PO SCH (05:00)
[2021-02-08 07:01] LABS: HEMOGLOBIN 12.9 GM/dL (11.7-16.9); MCH 31.6 pg (25.7-33.7); MCHC 33.9 g/dl (32.0-35.9); MEAN CELL VOLUME 93.1 fl (80-96); MEAN PLT VOLUME 7.5 fl (7.5-11.1); PLATELET COUNT 135 10^3/uL (134-434); RBC 4.08 M/mm3 (4.00-5.60); RDW 14.2 % (11.9-15.9); WHITE BLOOD COUNT 11.1 K/mm3 (4.0-10.0)
[2021-02-08] MEDS: DEXMEDETOMIDINE IN 0.9 % NACL 400 MCG/100 ML VIAL IVPB SCH (07:35)
[2021-02-08 07:47] LABS: BLOOD UREA NITROGEN 7.7 mg/dL (7-18)
[2021-02-08 07:50] LABS: CREATININE 0.8 mg/dL (0.55-1.3); PHOSPHOROUS 2.2 mg/dL (2.5-4.9)
[2021-02-08] MEDS: FOLIC ACID 1 MG TABLET (FP) PO SCH (10:25)
[2021-02-08] MEDS: levETIRAcetam 500 MG TABLET (FP) PO SCH (10:25)
[2021-02-08] MEDS: THIAMINE HCL 100 MG TABLET (FP) PO SCH (10:25)
[2021-02-08] MEDS: MUPIROCIN 2% TOPICAL OINTMENT FOR DECOLONIZATION NS SCH ×2 (10:25→21:21)
[2021-02-08] MEDS: PANTOPRAZOLE SODIUM 40 MG VIAL IVPUSH SCH (10:26)
[2021-02-08] MEDS ORDERED: PT OWN MED DRAWER 7, Y5N ONE (15:36)
[2021-02-08] MEDS ORDERED: ACETAMINOPHEN 1000 MG/100 ML VIAL (NON FORMULARY) IVPB ONE (16:25)
[2021-02-08] MEDS ORDERED: ACETAMINOPHEN INJECTION 100 ML IVPB ONE (16:26)
[2021-02-08 16:46] LABS: EPI CELLS 10 /uL (0-25.1); HYALINE CASTS 2 /uL (0-3.1); PH,URINE 5.5 (5.0-8.0); URINE APPEARANCE CLEAR; URINE BACTERIA 8 /uL (0-1359); URINE BILIRUBIN NEGATIVE (NEGATIVE); URINE COLOR DK YELLOW; URINE GLUCOSE (UA) NEGATIVE (NEGATIVE); URINE KETONE NEGATIVE (NEGATIVE); URINE LEUK ESTERASE NEGATIVE (NEGATIVE); URINE NITRITE NEGATIVE (NEGATIVE); URINE PROTEIN 1+ (NEGATIVE); URINE RBC 20 /uL (0-23.9); URINE WBC 9 /uL (0-25.8)
[2021-02-08] MEDS: levETIRAcetam 500 MG/5 ML INJECTION VIAL IVPB SCH (21:20)
[2021-02-08] MEDS: CHLORHEXIDINE GLUCONATE 4% CLEANSER FOR DECOLONIZATION TP SCH (21:20)
[2021-02-09] MEDS ORDERED: LORazepam 0.5 MG TABLET PO PRN
[2021-02-09] MEDS: LORazepam 2 MG/ML SDV VIAL IVPUSH PRN ×2 (00:48→22:15)
[2021-02-09] MEDS ORDERED: LORazepam 0.5 MG TABLET PO SCH (05:00)
[2021-02-09] MEDS ORDERED: ACETAMINOPHEN 1000 MG/100 ML VIAL (NON FORMULARY) IVPB ONE (05:01)
[2021-02-09 07:08] LABS: HEMATOCRIT 37.9 % (35.4-49); HEMOGLOBIN 12.7 GM/dL (11.7-16.9); MCH 31.9 pg (25.7-33.7); MCHC 33.6 g/dl (32.0-35.9); MEAN CELL VOLUME 94.9 fl (80-96); MEAN PLT VOLUME 7.4 fl (7.5-11.1); PLATELET COUNT 132 10^3/uL (134-434); RBC 3.99 M/mm3 (4.00-5.60); RDW 14.5 % (11.9-15.9); WHITE BLOOD COUNT 10.9 K/mm3 (4.0-10.0)
[2021-02-09] MEDS: DEXMEDETOMIDINE IN 0.9 % NACL 400 MCG/100 ML VIAL IVPB SCH ×2 (07:15→23:04)
[2021-02-09 07:26] LABS: CALCIUM 8.6 mg/dL (8.5-10.1)
[2021-02-09 07:30] LABS: CREATININE 0.8 mg/dL (0.55-1.3)
[2021-02-09] MEDS: PANTOPRAZOLE SODIUM 40 MG VIAL IVPUSH SCH (10:55)
[2021-02-09] MEDS: levETIRAcetam 500 MG/5 ML INJECTION VIAL IVPB SCH ×2 (10:58→21:11)
[2021-02-09] MEDS: FOLIC ACID 1 MG TABLET (FP) PO SCH (11:17)
[2021-02-09] MEDS: THIAMINE HCL 100 MG TABLET (FP) PO SCH (11:17)
[2021-02-09] MEDS: MUPIROCIN 2% TOPICAL OINTMENT FOR DECOLONIZATION NS SCH ×2 (11:21→21:12)
[2021-02-09] MEDS ORDERED: MANNITOL 25% 12.5 GM/50 ML VIAL IVPB SCH ×2 (11:30)
[2021-02-09] MEDS: MANNITOL IVPB SCH ×2 (12:28→18:33)
[2021-02-09] MEDS: [UNRECOGNIZED DRUG - OTHER] IVPB SCH ×2 (12:28→18:33)
[2021-02-09] MEDS ORDERED: MANNITOL IVPB SCH (12:30)
[2021-02-09] MEDS ORDERED: WATER IVPB SCH (12:30)
[2021-02-09] MEDS ORDERED: DEXTROSE 5% IVPB SCH (12:30)
[2021-02-09] MEDS: ACETAMINOPHEN 325 MG TABLET (FP) PO PRN (15:19)
[2021-02-09] MEDS ORDERED: PT OWN MED DRAWER 7, Y5N ONE (17:44)
[2021-02-09] MEDS: CHLORHEXIDINE GLUCONATE 4% CLEANSER FOR DECOLONIZATION TP SCH (21:11)
[2021-02-09] MEDS ORDERED: LORazepam 2 MG/ML SDV VIAL IVPUSH ONE (22:23)
[2021-02-10] MEDS: MANNITOL IVPB SCH (03:02)
[2021-02-10] MEDS: [UNRECOGNIZED DRUG - OTHER] IVPB SCH (03:02)
[2021-02-10] MEDS ORDERED: LORazepam 0.5 MG TABLET PO ONE (05:00)
[2021-02-10 06:46] LABS: BASO % 0.2 % (0-2.0); EOS % 0.4 % (0-4.5); HEMATOCRIT 36.5 % (35.4-49); HEMOGLOBIN 12.2 GM/dL (11.7-16.9); LYMPH % 21.8 % (8-40); MCH 32.3 pg (25.7-33.7); MCHC 33.5 g/dl (32.0-35.9); MEAN CELL VOLUME 96.4 fl (80-96); MEAN PLT VOLUME 8.1 fl (7.5-11.1); MONO % 13.8 % (3.8-10.2); NEUT % 63.8 % (42.8-82.8); PLATELET COUNT 152 10^3/uL (134-434); RBC 3.79 M/mm3 (4.00-5.60); RDW 13.9 % (11.9-15.9); WHITE BLOOD COUNT 9.6 K/mm3 (4.0-10.0)
[2021-02-10 06:56] LABS: BLOOD UREA NITROGEN 13.2 mg/dL (7-18); CALCIUM 8.8 mg/dL (8.5-10.1)
[2021-02-10 06:57] LABS: MAGNESIUM 2.3 mg/dL (1.8-2.4)
[2021-02-10 07:00] LABS: CREATININE 0.9 mg/dL (0.55-1.3); PHOSPHOROUS 3.3 mg/dL (2.5-4.9)
[2021-02-10] MEDS: PANTOPRAZOLE SODIUM 40 MG VIAL IVPUSH SCH (09:52)
[2021-02-10] MEDS: THIAMINE HCL 100 MG TABLET (FP) PO SCH (09:53)
[2021-02-10] MEDS: FOLIC ACID 1 MG TABLET (FP) PO SCH (09:53)
[2021-02-10] MEDS: levETIRAcetam 500 MG/5 ML INJECTION VIAL IVPB SCH ×2 (09:53→21:16)
[2021-02-10] MEDS: MUPIROCIN 2% TOPICAL OINTMENT FOR DECOLONIZATION NS SCH ×2 (10:05→21:20)
[2021-02-10] MEDS: ACETAMINOPHEN 325 MG TABLET (FP) PO PRN (17:22)
[2021-02-10] MEDS: CHLORHEXIDINE GLUCONATE 4% CLEANSER FOR DECOLONIZATION TP SCH (21:16)
[2021-02-11 07:37] LABS: BASO % 0.2 % (0-2.0); EOS % 1.4 % (0-4.5); HEMOGLOBIN 11.8 GM/dL (11.7-16.9); LYMPH % 24.2 % (8-40); MCH 32.9 pg (25.7-33.7); MCHC 34.7 g/dl (32.0-35.9); MEAN CELL VOLUME 94.7 fl (80-96); MEAN PLT VOLUME 7.7 fl (7.5-11.1); MONO % 12.6 % (3.8-10.2); NEUT % 61.6 % (42.8-82.8); PLATELET COUNT 170 10^3/uL (134-434); RBC 3.59 M/mm3 (4.00-5.60); RDW 14.2 % (11.9-15.9); WHITE BLOOD COUNT 8.1 K/mm3 (4.0-10.0)
[2021-02-11 08:08] LABS: BLOOD UREA NITROGEN 15.2 mg/dL (7-18)
[2021-02-11 08:10] LABS: CALCIUM 8.6 mg/dL (8.5-10.1); CREATININE 0.8 mg/dL (0.55-1.3)
[2021-02-11 08:11] LABS: BILIRUBIN,TOTAL 0.9 mg/dL (0.2-1); MAGNESIUM 2.3 mg/dL (1.8-2.4); PHOSPHOROUS 3.4 mg/dL (2.5-4.9)
[2021-02-11 08:15] LABS: TOT PROT 7.6 g/dl (6.4-8.2)
[2021-02-11] MEDS ORDERED: POTASSIUM CHLORIDE TABS 20 MEQ TABLET.ER (FP) PO ONE (08:45)
[2021-02-11] MEDS: KCL 10 MEQ IVPB 10 MEQ/100 ML INFUS.BAG IVPB SCH ×3 (09:23→12:14)
[2021-02-11] MEDS: MUPIROCIN 2% TOPICAL OINTMENT FOR DECOLONIZATION NS SCH (09:23)
[2021-02-11] MEDS: levETIRAcetam 500 MG/5 ML INJECTION VIAL IVPB SCH ×2 (09:24→22:33)
[2021-02-11] MEDS: THIAMINE HCL 100 MG TABLET (FP) PO SCH (09:24)
[2021-02-11] MEDS: PANTOPRAZOLE SODIUM 40 MG VIAL IVPUSH SCH (09:24)
[2021-02-11] MEDS: FOLIC ACID 1 MG TABLET (FP) PO SCH (09:24)
[2021-02-11] MEDS: DEXMEDETOMIDINE IN 0.9 % NACL 400 MCG/100 ML VIAL IVPB SCH (12:13)
[2021-02-11] MEDS: ACETAMINOPHEN 325 MG TABLET (FP) PO PRN (17:56)
[2021-02-11] MEDS ORDERED: LORazepam 2 MG/ML SDV VIAL IVPUSH PRN (21:28)
[2021-02-11] MEDS ORDERED: DEXMEDETOMIDINE IN 0.9 % NACL 400 MCG/100 ML VIAL IVPB SCH ×2 (21:28→22:15)
[2021-02-11] MEDS ORDERED: CHLORHEXIDINE GLUCONATE 4% CLEANSER FOR DECOLONIZATION TP SCH (22:00)
[2021-02-11] MEDS ORDERED: MUPIROCIN 2% TOPICAL OINTMENT FOR DECOLONIZATION NS SCH (22:00)
[2021-02-12] MEDS: ACETAMINOPHEN 325 MG TABLET (FP) PO PRN ×2 (03:52→15:17)
[2021-02-12] MEDS ORDERED: PANTOPRAZOLE SODIUM 40 MG VIAL IVPUSH SCH (10:00)
[2021-02-12] MEDS: levETIRAcetam 500 MG/5 ML INJECTION VIAL IVPB SCH (10:58)
[2021-02-12] MEDS: PANTOPRAZOLE 40 MG TABLET PO SCH (11:50)
[2021-02-12] MEDS: FOLIC ACID 1 MG TABLET (FP) PO SCH (11:50)
[2021-02-12] MEDS: levETIRAcetam 500 MG TABLET (FP) PO SCH ×2 (11:51→21:26)
[2021-02-12] MEDS: THIAMINE HCL 100 MG TABLET (FP) PO SCH (11:51)
[2021-02-12 15:23] VITALS: BMI 25.6
[2021-02-12] MEDS ORDERED: POTASSIUM CHLORIDE TABS 20 MEQ TABLET.ER (FP) PO ONE (19:01)
[2021-02-13 10:50] LABS: BASO % 0.3 % (0-2.0); EOS % 0.6 % (0-4.5); HEMATOCRIT 36.6 % (35.4-49); HEMOGLOBIN 12.5 GM/dL (11.7-16.9); LYMPH % 24.3 % (8-40); MCH 32.9 pg (25.7-33.7); MCHC 34.1 g/dl (32.0-35.9); MEAN CELL VOLUME 96.6 fl (80-96); MEAN PLT VOLUME 7.9 fl (7.5-11.1); NEUT % 61.8 % (42.8-82.8); PLATELET COUNT 264 10^3/uL (134-434); RBC 3.78 M/mm3 (4.00-5.60); RDW 14.1 % (11.9-15.9); WHITE BLOOD COUNT 8.4 K/mm3 (4.0-10.0)
[2021-02-13 11:09] LABS: CALCIUM 8.8 mg/dL (8.5-10.1)
[2021-02-13 11:10] LABS: ALBUMIN 3.2 g/dl (3.4-5.0); BLOOD UREA NITROGEN 12.4 mg/dL (7-18)
[2021-02-13 11:12] LABS: CREATININE 0.8 mg/dL (0.55-1.3)
[2021-02-13 11:13] LABS: BILIRUBIN,TOTAL 0.8 mg/dL (0.2-1); TOT PROT 7.9 g/dl (6.4-8.2)
[2021-02-13] MEDS: levETIRAcetam 500 MG TABLET (FP) PO SCH ×2 (11:14→21:22)
[2021-02-13] MEDS: FOLIC ACID 1 MG TABLET (FP) PO SCH (11:14)
[2021-02-13] MEDS: PANTOPRAZOLE 40 MG TABLET PO SCH (11:14)
[2021-02-13] MEDS: THIAMINE HCL 100 MG TABLET (FP) PO SCH (11:14)
[2021-02-14] MEDS: FOLIC ACID 1 MG TABLET (FP) PO SCH (10:30)
[2021-02-14] MEDS: levETIRAcetam 500 MG TABLET (FP) PO SCH ×2 (10:30→21:03)
[2021-02-14] MEDS: PANTOPRAZOLE 40 MG TABLET PO SCH (10:30)
[2021-02-14] MEDS: THIAMINE HCL 100 MG TABLET (FP) PO SCH (10:30)
[2021-02-15] MEDS: FOLIC ACID 1 MG TABLET (FP) PO SCH (11:03)
[2021-02-15] MEDS: THIAMINE HCL 100 MG TABLET (FP) PO SCH (11:04)
[2021-02-15] MEDS: levETIRAcetam 500 MG TABLET (FP) PO SCH ×2 (11:05→21:03)
[2021-02-15] MEDS: PANTOPRAZOLE 40 MG TABLET PO SCH (11:05)
[2021-02-15] MEDS: ACETAMINOPHEN 325 MG TABLET (FP) PO PRN (20:11)
[2021-02-16] MEDS: THIAMINE HCL 100 MG TABLET (FP) PO SCH (10:11)
[2021-02-16] MEDS: levETIRAcetam 500 MG TABLET (FP) PO SCH ×2 (10:11→21:52)
[2021-02-16] MEDS: PANTOPRAZOLE 40 MG TABLET PO SCH (10:11)
[2021-02-16] MEDS: FOLIC ACID 1 MG TABLET (FP) PO SCH (10:12)
[2021-02-17] MEDS: PANTOPRAZOLE 40 MG TABLET PO SCH (11:15)
[2021-02-17] MEDS: FOLIC ACID 1 MG TABLET (FP) PO SCH (11:15)
[2021-02-17] MEDS: THIAMINE HCL 100 MG TABLET (FP) PO SCH (11:15)
[2021-02-17] MEDS: levETIRAcetam 500 MG TABLET (FP) PO SCH ×2 (11:15→22:17)
[2021-02-17] MEDS: ASPIRIN COATED 81 MG TABLET.EC PO SCH (17:42)
[2021-02-18] MEDS: PANTOPRAZOLE 40 MG TABLET PO SCH (09:41)
[2021-02-18] MEDS: levETIRAcetam 500 MG TABLET (FP) PO SCH ×2 (09:41→21:01)
[2021-02-18] MEDS: THIAMINE HCL 100 MG TABLET (FP) PO SCH (09:41)
[2021-02-18] MEDS: FOLIC ACID 1 MG TABLET (FP) PO SCH (09:42)
[2021-02-18] MEDS: ASPIRIN COATED 81 MG TABLET.EC PO SCH (09:42)
[2021-02-19] MEDS: PANTOPRAZOLE 40 MG TABLET PO SCH (09:42)
[2021-02-19] MEDS: THIAMINE HCL 100 MG TABLET (FP) PO SCH (09:42)
[2021-02-19] MEDS: levETIRAcetam 500 MG TABLET (FP) PO SCH (09:42)
[2021-02-19] MEDS: ASPIRIN COATED 81 MG TABLET.EC PO SCH (09:42)
[2021-02-19] MEDS: FOLIC ACID 1 MG TABLET (FP) PO SCH (09:42)
[2021-02-19 09:49] VITALS: PULSE 50
[2021-02-19 15:22] VITALS: BP 117/57; TEMP 98.9
== END 2021-02-19 16:40 | disposition home or self-care (01) | DRG 55 ==
LOC: JER 18:27 → JERBED 21:12 → JICU 23:16 → J4S 02-11 21:13 → J5S 02-11 21:17
PROVIDERS: ADMIT Internal Medicine; ATTEND Internal Medicine
DX: S06.5X9A Traumatic subdural hemorrhage with loss of consciousness of unspecified duration, initial encounter (principal); G93.6 Cerebral edema; I25.10 Atherosclerotic heart disease of native coronary artery without angina pectoris; I10 Essential (primary) hypertension; E78.5 Hyperlipidemia, unspecified; S01.01XA Laceration without foreign body of scalp, initial encounter; F10.20 Alcohol dependence, uncomplicated; Y90.8 Blood alcohol level of 240 mg/100 ml or more; R50.9 Fever, unspecified; Z95.1 Presence of aortocoronary bypass graft; Y92.009 Unspecified place in unspecified non-institutional (private) residence as the place of occurrence of the external cause; W18.30XA Fall on same level, unspecified, initial encounter
CPT/HCPCS: 36415; 70450-TC; 71045-TC-FY; 72125-TC; 72170-TC-FY; 73562-TC-RT-FY; 80048; 80053; 80307; 81003; 82947; 82962; 83735; 84100; 85025; 85027; 85610; 85730; 86850; 86900; 86901; 87040; 93005; 93010; 95816; 97116-GP; 97161-GP; 99285-25; C9803; J0131; U0003; U0005